=== PATIENT | female | born 1985 | race Caucasian/White ===

== ENCOUNTER → 2022-09-01 | Outpatient (REF) | payer MEDICAID, OTHER ==
[2022-09-01 17:22] LABS: BASO # 0.1 10^3/uL (0.0-0.2); EOS # 0.1 10^3/uL (0.0-0.5); EOS % 1.7 % (0.0-3.0); HEMATOCRIT 38.9 % (36.0-47.0); HEMOGLOBIN 13.2 g/dl (12.0-15.5); LYMPH # 1.9 10^3/uL (1.5-5.0); LYMPH % 32.1 % (24.0-44.0); MEAN CORPUSCULAR HEMOGLOBIN 32.8 pg (27.0-33.0); MEAN CORPUSCULAR HGB CONC 33.9 g/dl (32.0-36.5); MEAN CORPUSCULAR VOLUME 96.8 fl (80.0-96.0); MONO # 0.5 10^3/uL (0.0-0.8); MONO % 8.7 % (2.0-8.0); NEUTROPHILS # 3.2 10^3/uL (1.5-8.5); NEUTROPHILS % 56.3 % (36.0-66.0); PLATELET COUNT, AUTOMATED 239 10^3/uL (150-450); RED BLOOD COUNT 4.02 10^6/uL (4.00-5.40); WHITE BLOOD COUNT 5.8 10^3/uL (4.0-10.0)
[2022-09-01 18:03] LABS: FREE T4 1.19 NG/DL (0.89-1.76); THYROID STIMULATING HORMONE 1.208 uIU/ML (0.55-4.78)
[2022-09-01 18:09] LABS: ALBUMIN 4.1 G/DL (3.2-5.2); ALKALINE PHOSPHATASE 58 U/L (46-116); ALT/SGPT 17 U/L (7.0-40); AST/SGOT 14 U/L (<34); BILIRUBIN,TOTAL 0.5 MG/DL (0.3-1.2); BLOOD UREA NITROGEN 13 MG/DL (9-23); CALCIUM LEVEL 8.9 MG/DL (8.5-10.1); CARBON DIOXIDE LEVEL 24 MMOL/L (20-31); CHLORIDE LEVEL 104 MMOL/L (98-107); CHOLESTEROL LEVEL 184 MG/DL (<200); CHOLESTEROL RISK RATIO 3.25 (<5); CREATININE FOR GFR 0.74 MG/DL (0.55-1.30); GLOMERULAR FILTRATION RATE > 60.0 (>60); GLUCOSE, FASTING 90 MG/DL (60-100); HDL CHOLESTEROL 56.6 MG/DL (>40); LDL CHOLESTEROL 115.2 MG/DL (<100); NON-HDL-C 127.4 MG/DL; POTASSIUM SERUM 4.3 MMOL/L (3.5-5.1); SODIUM LEVEL 137 MMOL/L (136-145); TOTAL PROTEIN 7.1 G/DL (5.7-8.2); TRIGLYCERIDES LEVEL 61 MG/DL (<150)
== END ==
LOC: M LAB REF 16:16
PROVIDERS: ATTEND Nurse Practitioner Family
DX: Z13.228 Encounter for screening for other metabolic disorders (principal)

== ENCOUNTER → 2022-12-10 | Outpatient (REF) | payer OTHER, MEDICAID | LOC: M LAB REF 12-09 11:27 | PROVIDERS: ATTEND Nurse Practitioner Family | DX: J03.90 Acute tonsillitis, unspecified (principal) ==

== ENCOUNTER 2023-06-08 18:24 | Emergency (ER) | payer OTHER, MEDICAID ==
[~2023-06-08] VITALS: Ht 172.7 cm; Wt 75.0 kg
[2023-06-08 18:25] VITALS: BP 143/79; TEMP 98.2; O2SAT 100
[2023-06-08] MEDS ORDERED: PROB250C PO (18:37)
== END 2023-06-08 21:51 | disposition left against medical advice (07) ==
LOC: M ED 18:24
DX: Z53.21 Procedure and treatment not carried out due to patient leaving prior to being seen by health care provider (principal)

== ENCOUNTER → 2023-06-09 | Outpatient (REF) | payer OTHER, MEDICAID ==
[~2023-06-09] MED LIST: PROB250C PO
[2023-06-09 12:50] LABS: BLOOD UREA NITROGEN 12 MG/DL (9-23); CALCIUM LEVEL 9.7 MG/DL (8.5-10.1); CARBON DIOXIDE LEVEL 30 MMOL/L (20-31); CHLORIDE LEVEL 110 MMOL/L (98-107); CREATININE FOR GFR 0.72 MG/DL (0.55-1.30); GLOMERULAR FILTRATION RATE > 60.0 (>60); GLUCOSE, FASTING 89 MG/DL (60-100); POTASSIUM SERUM 4.4 MMOL/L (3.5-5.1); SODIUM LEVEL 139 MMOL/L (136-145)
[2023-06-09 12:51] LABS: THYROID STIMULATING HORMONE 1.524 uIU/ML (0.55-4.78)
== END ==
LOC: M LAB REF 11:44
PROVIDERS: ATTEND Nurse Practitioner Family
DX: R00.2 Palpitations (principal)

== ENCOUNTER 2024-02-21 12:41 | Emergency (ER) | payer MEDICAID, OTHER ==
[~2024-02-21] VITALS: Ht 172.7 cm; Wt 79.1 kg
[2024-02-21] MEDS: ALBUTEROL 90 MCG/ACT 8GM HFA INHALER INH ONE (14:10)
[2024-02-21] MEDS ORDERED: DOXY-440 PO (15:07)
[2024-02-21] MEDS ORDERED: VENTAER INH (15:07)
[2024-02-21] MEDS ORDERED: BENZ200C70 PO (15:07)
[2024-02-21] MEDS: DOXYCYCLINE HYCLATE 100MG TABLET PO ONE (15:13)
[2024-02-21 15:16] VITALS: BP 120/74; TEMP 97.9; O2SAT 100
== END 2024-02-21 15:18 | disposition home or self-care (01) ==
LOC: M ED 12:41
DX: J20.9 Acute bronchitis, unspecified (principal); J01.90 Acute sinusitis, unspecified; F17.200 Nicotine dependence, unspecified, uncomplicated; Z88.2 Allergy status to sulfonamides; Z88.6 Allergy status to analgesic agent; Z11.52 Encounter for screening for COVID-19

== ENCOUNTER 2024-10-07 07:36 | Emergency (ER) | payer OTHER ==
[~2024-10-07] VITALS: Ht 172.7 cm; Wt 76.5 kg
[~2024-10-07 07:36] MED LIST changes: +BENZ200C70 PO; +DOXY-440 PO; +VENTAER INH
[2024-10-07 09:39] LABS: BASO # 0.1 10^3/uL (0.0-0.2); BASO % 0.5 % (0.0-1.0); EOS # 0.0 10^3/uL (0.0-0.5); EOS % 0.3 % (0.0-3.0); LYMPH # 1.7 10^3/uL (1.5-5.0); LYMPH % 16.6 % (24.0-44.0); MONO # 0.8 10^3/uL (0.0-0.8); MONO % 7.4 % (2.0-8.0); NEUTROPHILS # 7.7 10^3/uL (1.5-8.5); NEUTROPHILS % 74.9 % (36.0-66.0); PLATELET COUNT, AUTOMATED 233 10^3/uL (150-450)
[2024-10-07 10:12] LABS: ALT/SGPT 16 U/L (7.0-40); AST/SGOT 19 U/L (<34); CALCIUM LEVEL 9.6 MG/DL (8.5-10.1); CARBON DIOXIDE LEVEL 25 MMOL/L (20-31); CHLORIDE LEVEL 107 MMOL/L (98-107); CREATININE FOR GFR 0.69 MG/DL (0.55-1.30); GLOMERULAR FILTRATION RATE > 90.0 (>60); POTASSIUM SERUM 4.3 MMOL/L (3.5-5.1); SODIUM LEVEL 141 MMOL/L (136-145)
[2024-10-07 10:21] LABS: HCG, SERUM QUALITATIVE NEGATIVE (NEGATIVE)
[2024-10-07 11:36] LABS: KETONE, URINE AUTO RFX 1+ mg/dL (NEGATIVE); LEUKOCYTE ESTERASE UR AUTO RFX TRACE (NEGATIVE); MUCUS, URINE RFX SMALL (NEGATIVE); NITRITE, URINE AUTO RFX NEGATIVE (NEGATIVE); RBC, URINE AUTO RFX 5 /HPF (0-3); SQUAM EPITHELIAL CELL UR AURFX 19 /HPF (0-6); WBC, URINE AUTO RFX 2 /HPF (0-3)
[2024-10-07] MEDS ORDERED: ISOVUE-370 76% 100 ML VIAL As Ordered ONE (11:52)
[2024-10-07 14:03] VITALS: BP 144/84; TEMP 98.4; O2SAT 100
[2024-10-07] MEDS ORDERED: HOME MED LIST COMPLETE! XX SCH (14:15)
== END 2024-10-07 14:22 | disposition home or self-care (01) ==
LOC: M ED 07:36
DX: R10.12 Left upper quadrant pain (principal); R10.32 Left lower quadrant pain; F17.200 Nicotine dependence, unspecified, uncomplicated; Z88.2 Allergy status to sulfonamides; Z88.6 Allergy status to analgesic agent
CPT/HCPCS: 74177; 80048; 80076; 81001; 83690; 84703; 85025; 87086; 99284; Q9967

== ENCOUNTER → 2024-12-19 | Outpatient (REF) | payer OTHER ==
[2024-12-19 14:27] LABS: BASO # 0.1 10^3/uL (0.0-0.2); BASO % 0.9 % (0.0-1.0); EOS # 0.1 10^3/uL (0.0-0.5); EOS % 0.9 % (0.0-3.0); LYMPH # 1.9 10^3/uL (1.5-5.0); LYMPH % 28.6 % (24.0-44.0); MONO # 0.5 10^3/uL (0.0-0.8); MONO % 8.3 % (2.0-8.0); NEUTROPHILS # 4.0 10^3/uL (1.5-8.5); NEUTROPHILS % 61.1 % (36.0-66.0); PLATELET COUNT, AUTOMATED 277 10^3/uL (150-450)
[2024-12-19 14:33] LABS: CHOLESTEROL LEVEL 193.0 MG/DL (<200); CHOLESTEROL RISK RATIO 3.66 (<5); LDL CHOLESTEROL 126.7 MG/DL (<100); NON-HDL-C 140.3 MG/DL; TRIGLYCERIDES LEVEL 68.0 MG/DL (<150)
[2024-12-19 14:34] LABS: IRON (FE) 62.0 UG/DL (50-170); PERCENT SATURATION 21.2 % (13.2-45.0); TOTAL 25(OH) VITAMIN D 29.2 NG/ML (20.0-100.0)
[2024-12-19 14:36] LABS: VITAMIN B12 LEVEL 737.0 PG/ML (211-911)
== END ==
LOC: M LAB REF 13:39
PROVIDERS: ATTEND Nurse Practitioner Family
DX: R10.12 Left upper quadrant pain (principal); K29.00 Acute gastritis without bleeding; E78.5 Hyperlipidemia, unspecified; M85.88 Other specified disorders of bone density and structure, other site; R53.83 Other fatigue; Z86.2 Personal history of diseases of the blood and blood-forming organs and certain disorders involving the immune mechanism; R63.4 Abnormal weight loss